=== PATIENT | female | born 1990 | race African-American/Black ===

== ENCOUNTER 2016-06-09 07:29 | Emergency (ER) | payer SELFPAY ==
[~2016-06-09] VITALS: Ht 160 cm; Wt 111.1 kg
[~2016-06-09 07:29] MED LIST: ALBUTEROL SULF8.5 GM INH; AMOXICILLIN500 MG ORAL; AZITHROMYCIN250 MG ORAL; AZITHROMYCIN250 MG PO; BACTRIM DS TAB1 EAC1 ORAL; BACTRIM-DS1 EA ORAL; CEPHALEXIN500 MG ORAL; COLACE100 MG ORAL; IBUPROFEN600 MG ORAL; IMITREX50 MG PO; MUCINEX600 MG PO; NKM; NORCO 5-325 TA1 EACH ORAL; PREDNISONE20 MG ORAL; VICODIN 5-5001 EACH ORAL; VICODIN 5-5001 EACH PO
[2016-06-09 07:41] VITALS: BP 141/82
[2016-06-09] MEDS ORDERED: ZOFRAN ODT4 MG ORAL (08:10)
--- NOTE | 2016-06-09 08:17 | Emergency Room Report ---
History of Present Illness General Chief Complaint: Nausea Source: Patient Present Illness HPI Patient present with complaints of upset epigastric discomfort nausea vomiting yesterday patient feels that after eating tacos on Monday she had the acute discomfort She felt better after the vomiting however had some continuing nausea Denies any chest pain or shortness of breath denies any flank pain denies any back pain Denies any fevers or chills Patient also reports a small discharge from the left axilla denies any trauma however reports that she has had previous multiple infections in that area Allergies: Coded Allergies: No Known Allergies (Unverified , 12/11/11) Patient History Past Medical History: see triage record Pertinent Family History: none Last Menstrual Period: 05/26/16 Now: No Reviewed Nursing Documentation: PMH: Agreed, PSxH: Agreed Nursing Documentation-PMH Hx Cardiac Problems: No Hx Hypertension: No Hx Pacemaker: No Hx Asthma: Yes Hx COPD: No Hx Diabetes: No Hx Cancer: No Hx Gastrointestinal Problems: No Hx Dialysis: No Hx Neurological Problems: No Hx Cerebrovascular Accident: No Hx Seizures: No Review of Systems All Other Systems: negative except mentioned in HPI Physical Exam Vital Signs Date Time Temp Pulse Resp B/P Pulse Ox O2 Delivery O2 Flow Rate FiO2 06/09/16 07:41 98.1 76 16 141/82 98 Room Air Sp02 EP Interpretation: reviewed, normal General Appearance: well appearing, no apparent distress Head: normocephalic, atraumatic Eyes: bilateral eye EOMI, bilateral eye PERRL ENT: hearing grossly normal, normal pharynx, TMs + canals normal, uvula midline Neck: full range of motion, supple, no meningismus, no bony tend Respiratory: lungs clear, normal breath sounds, no rhonchi, no respiratory distress, no retraction, no accessory muscle use Cardiovascular #1: normal peripheral pulses, regular rate, rhythm, no edema, no gallop, no JVD, no murmur Gastrointestinal: normal bowel sounds, non tender, soft, no mass, no organomegaly, non-distended, no guarding, no hernia, no pulsatile mass, no rebound Genitourinary: no CVA tenderness Musculoskeletal: normal inspection Neurologic: oriented x3, responsive, 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, motor strength/ tone normal, sensory intact Psychiatric: mood/affect normal Skin: palpation normal, other - Small folliculitis left axilla no surrounding cellulitis or erythema no fluctuance Lymphatic: normal inspection, no adenopathy Medical Decision Making Diagnostic Impression: Primary Impression: Nausea and vomiting in adult patient Additional Impression: folliculitis ER Course Patient is a fairly benign abdominal evaluation Also reports that she started to feel significantly better Patient reports that she missed work yesterday and is hoping to return tomorrow At this time I did not feel any further imaging or blood work was required given the benign evaluation and patient is stable for initial conservative outpatient trial Last Vital Signs Date Time Temp Pulse Resp B/P Pulse Ox O2 Delivery O2 Flow Rate FiO2 06/09/16 07:41 98.1 76 16 141/82 98 Room Air Status: unchanged Disposition: HOME, SELF-CARE Condition: Stable Scripts Ondansetron Odt* (ZOFRAN ODT*) 4 Mg Tab.rapdis 4 MG ORAL Q6H Y for Nausea & Vomiting, #12 TAB 0 Refills Prov: RIKI WARD D.O. 06/09/16 Departure Forms: Return to Work Return to Work in (Days): 1 Return to Work Date: Jun 10, 2016 Patient Instructions: Nausea and Vomiting, Adult, Folliculitis Additional Instructions: Patient is provided with the discharge instructions notified to follow up with primary doctor in the next 2-3 days otherwise return to the er with any worsening symptoms. Please note that this report is being documented using [employer] technology. This can lead to erroneous entry secondary to incorrect interpretation by the dictating instrument. RIKI WARD D.O. Jun 09, 2016 08:17
[2016-06-09 08:27] VITALS: BP 141/82
== END 2016-06-09 08:29 | disposition home or self-care (01) ==
LOC: EMR 08:01
DX: R10.13 Epigastric pain (principal); R11.2 Nausea with vomiting, unspecified; L73.9 Follicular disorder, unspecified; J45.909 Unspecified asthma, uncomplicated
CPT/HCPCS: 99283

== ENCOUNTER 2016-06-16 19:50 | Emergency (ER) | payer SELFPAY ==
[~2016-06-16] VITALS: Ht 160 cm; Wt 108.9 kg
[~2016-06-16 19:50] MED LIST changes: +ZOFRAN ODT4 MG ORAL
[2016-06-16 21:40] LABS: BASOPHILS % (AUTO) 0.6 % (0.0-2.0); EOSINOPHILS % (AUTO) 0.4 % (0.0-3.0); LYMPHOCYTES % (AUTO) 9.6 % (20.0-45.0); MEAN CORPUSCULAR HEMOGLOBIN 26.8 PG (27.0-31.0); MEAN CORPUSCULAR HGB CONC 32.4 G/DL (32.0-36.0); MEAN CORPUSCULAR VOLUME 83 FL (80-99); MEAN PLATELET VOLUME 9.2 FL (6.5-10.1); MONOCYTES % (AUTO) 4.7 % (1.0-10.0); NEUTROPHILS % (AUTO) 84.7 % (45.0-75.0); PLATELET COUNT 212 K/UL (150-450); RED BLOOD COUNT 4.19 M/UL (4.20-5.40); RED CELL DISTRIBUTION WIDTH 15.5 % (11.6-14.8); WHITE BLOOD COUNT 9.7 K/UL (4.8-10.8)
[2016-06-16 21:43] LABS: ALANINE AMINOTRANSFERASE 14 U/L (3-33); ALBUMIN/GLOBULIN RATIO 0.8 (1.0-2.7); ANION GAP 13 (5-15); ASPARTATE AMINO TRANSFERASE 17 U/L (5-40); CALCIUM 9.2 mg/dL (8.6-10.2); CARBON DIOXIDE 26 mEQ/L (20-30); CHLORIDE 99 mEQ/L (98-107); CREATININE 0.7 mg/dL (0.5-0.9); GLOMERULAR FILTRATION RATE > 60 mL/min (>60); HEMOLYSIS 0; LIPASE 25 U/L (< 60); SODIUM 138 mEQ/L (135-145); TOTAL PROTEIN 8.3 g/dL (6.6-8.7)
[2016-06-16 21:44] LABS: APPEARANCE,URINE CLEAR; KETONES,URINE 1+ (NEGATIVE); LEUKOCYTE ESTERASE ,URINE 1+ (NEGATIVE); NITRITE,URINE NEGATIVE (NEGATIVE); PH,URINE 7 (4.5-8.0); PROTEIN,URINE NEGATIVE (NEGATIVE); UROBILINOGEN,URINE NORMAL MG/DL (0.0-1.0)
[2016-06-16 21:57] LABS: RBC,URINE 0-2 /HPF (0 - 2); SQUAMOUS EPITHELIAL CELL,UR FEW /LPF (NONE/OCC)
[2016-06-16 21:58] LABS: BACTERIA,URINE FEW /HPF
[2016-06-16 22:25] VITALS: BP 123/71
[2016-06-16] MEDS ORDERED: Acetaminophen 500mg (ES) tab ORAL ONE (22:30)
[2016-06-16 23:36] VITALS: BP 129/81
--- NOTE | 2016-06-16 23:37 | Emergency Room Report ---
History of Present Illness General Chief Complaint: Abdominal Pain Source: Patient Present Illness HPI This patient presents with nausea, vomiting, diarrhea and crampy abdominal pain that started this morning around 10:30 AM. She does note that the symptoms started about 30 minutes after she ate at [employer]. He states that she has subjective fever and chills. She is diffuse bodyaches. She states it worsens the nausea and she is unable to tolerate anything orally. She is chest pain or shortness of breath. She denies dysuria or hematuria. She denies pelvic pain or abnormal vaginal discharge. She has no other complaints. Allergies: Coded Allergies: No Known Allergies (Unverified , 12/11/11) Patient History Past Medical History: see triage record, asthma Social History: Denies: alcohol use, drug use, smoking Last Menstrual Period: 06/10/16 Now: No Reviewed Nursing Documentation: PMH: Agreed, PSxH: Agreed Nursing Documentation-PMH Hx Cardiac Problems: No Hx Hypertension: No Hx Pacemaker: No Hx Asthma: Yes Hx COPD: No Hx Diabetes: No Hx Cancer: No Hx Gastrointestinal Problems: No Hx Dialysis: No Hx Neurological Problems: No Hx Cerebrovascular Accident: No Hx Seizures: No Review of Systems All Other Systems: negative except mentioned in HPI Physical Exam Vital Signs Date Time Temp Pulse Resp B/P Pulse Ox O2 Delivery O2 Flow Rate FiO2 06/16/16 20:02 99.0 96 17 120/71 99 Room Air Sp02 EP Interpretation: reviewed, normal General Appearance: no apparent distress, alert, GCS 15, non-toxic Head: normocephalic, atraumatic Eyes: bilateral eye PERRL, bilateral eye normal inspection ENT: hearing grossly normal, normal pharynx, no angioedema, normal voice Neck: full range of motion, supple/symm/no masses Respiratory: chest non-tender, lungs clear, normal breath sounds, speaking full sentences Cardiovascular #1: regular rate, rhythm, no edema Gastrointestinal: normal bowel sounds, soft, non-distended, no guarding, no rebound, tenderness - Diffusely ttp Rectal: deferred Genitourinary: no CVA tenderness Musculoskeletal: back normal, gait/station normal, normal range of motion, non- tender Neurologic: alert, oriented x3, responsive, motor strength/tone normal, sensory intact, speech normal Psychiatric: judgement/insight normal, memory normal, mood/affect normal, no suicidal/homicidal ideation Skin: normal color, no rash, warm/dry, well hydrated Medical Decision Making Diagnostic Impression: Primary Impression: Gastroenteritis ER Course This patient has a clinical presentation consistent with gastroenteritis. The patient's abdominal exam was benign. I do not suspect cholecystitis, pancreatitis, appendicitis or diverticulitis based on history and physical and laboratory workup. This is likely viral in etiology. The patient is nontoxic and nonsurgical at this time. The patient was given return precautions and followup instructions. Labs Test 06/16/16 21:04 White Blood Count 9.7 K/UL (4.8-10.8) Red Blood Count 4.19 M/UL (4.20-5.40) Hemoglobin 11.2 G/DL (12.0-16.0) Hematocrit 34.6 % (37.0-47.0) Mean Corpuscular Volume 83 FL (80-99) Mean Corpuscular Hemoglobin 26.8 PG (27.0-31.0) Mean Corpuscular Hemoglobin Concent 32.4 G/DL (32.0-36.0) Red Cell Distribution Width 15.5 % (11.6-14.8) Platelet Count 212 K/UL (150-450) Mean Platelet Volume 9.2 FL (6.5-10.1) Neutrophils (%) (Auto) 84.7 % (45.0-75.0) Lymphocytes (%) (Auto) 9.6 % (20.0-45.0) Monocytes (%) (Auto) 4.7 % (1.0-10.0) Eosinophils (%) (Auto) 0.4 % (0.0-3.0) Basophils (%) (Auto) 0.6 % (0.0-2.0) Urine Color Pale yellow Urine Appearance Clear Urine pH 7 (4.5-8.0) Urine Specific [place] 1.010 (1.005-1.035) Urine Protein Negative (NEGATIVE) Urine Glucose (UA) Negative (NEGATIVE) Urine Ketones 1+ (NEGATIVE) Urine Occult Blood Negative (NEGATIVE) Urine Nitrite Negative (NEGATIVE) Urine Bilirubin Negative (NEGATIVE) Urine Urobilinogen Normal MG/DL (0.0-1.0) Urine Leukocyte Esterase 1+ (NEGATIVE) Urine RBC 0-2 /HPF (0 - 2) Urine WBC 2-4 /HPF (0 - 2) Urine Squamous Epithelial Cells Few /LPF (NONE/OCC) Urine Bacteria Few /HPF (NONE) Urine HCG, Qualitative Negative Sodium Level 138 mEQ/L (135-145) Potassium Level 4.0 mEQ/L (3.4-4.9) Chloride Level 99 mEQ/L (98-107) Carbon Dioxide Level 26 mEQ/L (20-30) Anion Gap 13 (5-15) Blood Urea Nitrogen 9 mg/dL (7-23) Creatinine 0.7 mg/dL (0.5-0.9) Estimat Glomerular Filtration Rate > 60 mL/min (>60) Glucose Level 112 mg/dL (74-106) Calcium Level 9.2 mg/dL (8.6-10.2) Total Bilirubin 0.4 mg/dL (0.0-1.2) Aspartate Amino Transf (AST/SGOT) 17 U/L (5-40) Alanine Aminotransferase (ALT/SGPT) 14 U/L (3-33) Alkaline Phosphatase 84 U/L (35-104) Total Protein 8.3 g/dL (6.6-8.7) Albumin 3.8 g/dL (3.5-5.2) Globulin 4.5 g/dL Albumin/Globulin Ratio 0.8 (1.0-2.7) Lipase 25 U/L (< 60) Last Vital Signs Date Time Temp Pulse Resp B/P Pulse Ox O2 Delivery O2 Flow Rate FiO2 06/16/16 22:25 93 18 123/71 100 Room Air 06/16/16 20:02 99.0 Status: improved Disposition: HOME, SELF-CARE Condition: Improved DANDY OCHOA D.O. Jun 16, 2016 23:37
[2016-06-16] MEDS ORDERED: ZOFRAN ODT4 MG ORAL (23:39)
[2016-06-17] VITALS: BP 108/57
== END 2016-06-17 | disposition home or self-care (01) ==
LOC: EMR 20:37
DX: K52.9 Noninfective gastroenteritis and colitis, unspecified (principal); J45.909 Unspecified asthma, uncomplicated
CPT/HCPCS: 36415; 80053; 81003; 81025; 83690; 85025; 96360; 96361; 96374; 99284; J2405

== ENCOUNTER 2016-09-12 21:51 | Emergency (ER) | payer SELFPAY ==
[~2016-09-12] VITALS: Ht 160 cm; Wt 112.0 kg
[2016-09-12] MEDS ORDERED: PSEUDOEPHEDRINE30 MG PO (22:46)
[2016-09-12] MEDS ORDERED: AUGMENTIN 875-1 EAC1 ORAL (22:46)
[2016-09-12 23:33] VITALS: BP_SYST 1; BP_SYST 104; BP_DIAS 1; BP_DIAS 66
--- NOTE | 2016-09-13 01:04 | Emergency Room Report ---
History of Present Illness General Chief Complaint: Headache Source: Patient Present Illness HPI 25YOF [employer] with 1 week sinus pressure/headache, nasal discharge, eyes "running." Feels like usual sinus infection. Has resolved with Abx previously. Denies fever/chills, posterior headache, neck pain/stiffness Allergies: Coded Allergies: Cat Dander (Verified Allergy, Unknown, 09/12/16) Patient History Past Medical History: none Past Surgical History: none Pertinent Family History: none Social History: Denies: alcohol use, drug use, smoking Last Menstrual Period: today September 12, 2016 Now: No : 2 Para: 1 Immunizations: UTD Reviewed Nursing Documentation: PMH: Agreed, PSxH: Agreed Nursing Documentation-PMH Past Medical History: No History, Except For Hx Cardiac Problems: No Hx Hypertension: No Hx Pacemaker: No Hx Asthma: Yes Hx COPD: No Hx Diabetes: No Hx Cancer: No Hx Gastrointestinal Problems: No Hx Dialysis: No Hx Neurological Problems: No Hx Cerebrovascular Accident: No Hx Seizures: No Review of Systems All Other Systems: negative except mentioned in HPI Physical Exam Vital Signs Date Time Temp Pulse Resp B/P Pulse Ox O2 Delivery O2 Flow Rate FiO2 09/12/16 22:06 97.9 90 18 104/66 98 Room Air Sp02 EP Interpretation: reviewed, normal General Appearance: normal inspection, well appearing, no apparent distress, alert Head: atraumatic Eyes: bilateral eye EOMI, bilateral eye PERRL ENT: normal ENT inspection, hearing grossly normal, normal pharynx, no angioedema, normal voice, nasal congestion, other - TTP to frontal and maxillary sinuses Neck: normal inspection, full range of motion, supple, no bony tend Respiratory: normal inspection, lungs clear, normal breath sounds, no respiratory distress, no retraction, no wheezing Cardiovascular #1: regular rate, rhythm, no edema Gastrointestinal: normal inspection, normal bowel sounds, non tender, soft, no guarding, no hernia Genitourinary: no CVA tenderness Musculoskeletal: normal inspection, back normal, normal range of motion, Peggy' s Sign negative Neurologic: normal inspection, alert, oriented x3, responsive, pediatric np III-XII nml as tested, motor strength/tone normal, speech normal Psychiatric: normal inspection, judgement/insight normal, mood/affect normal Skin: normal inspection, normal color, no rash Medical Decision Making Diagnostic Impression: Primary Impression: Sinusitis, acute Qualified Codes: J01.11 - Acute recurrent frontal sinusitis ER Course Rx Augmentin, Sudafed for recurrent sinusitis Advised PMD followup Last Vital Signs Date Time Temp Pulse Resp B/P Pulse Ox O2 Delivery O2 Flow Rate FiO2 09/12/16 23:33 1/09/12/16 23:33 97.9 18 98 Room Air 09/12/16 22:06 90 Status: improved Disposition: HOME, SELF-CARE Condition: Improved Scripts Pseudoephedrine Hcl* (SUDAFED*) 30 Mg Tablet 30 MG PO Q6H for sinus congstion for 3 Days, #15 TAB Prov: YAHIR BLANCO M.D. 09/12/16 Amoxicillin/Potassium Clav 875-125* (AUGMENTIN 875-125 TABLET*) 1 Each Tablet 1 TAB ORAL TWICE A DAY for 7 Days, #14 TAB Prov: YAHIR BLANCO M.D. 09/12/16 Referrals: NOT CHOSEN HERNAN/,REFERRING (PCP) Patient Instructions: Sinus Headache YAHIR BLANCO M.D. Sep 13, 2016 01:04
== END 2016-09-12 22:55 | disposition home or self-care (01) ==
LOC: EMR 22:35
DX: J01.90 Acute sinusitis, unspecified (principal); J45.909 Unspecified asthma, uncomplicated
CPT/HCPCS: 99284

== ENCOUNTER 2017-05-05 01:47 | Emergency (ER) | payer OTHER ==
[~2017-05-05] VITALS: Ht 160 cm; Wt 114.3 kg
[~2017-05-05 01:47] MED LIST changes: +AUGMENTIN 875-1 EAC1 ORAL; +PSEUDOEPHEDRINE30 MG PO
[2017-05-05] MEDS ORDERED: KETOROLAC TROME10 MG PO (02:37)
[2017-05-05] MEDS ORDERED: Ketorolac 30mg Inj IM ONE (02:45)
[2017-05-05 02:48] VITALS: BP 110/70
--- NOTE | 2017-05-05 03:25 | Emergency Room Report ---
History of Present Illness General Chief Complaint: Toothache Source: Patient Present Illness HPI 26-year-old female presenting with right-sided tooth pain since Monday, states that [facility] gave her amoxicillin. States that the [place] is just making her nauseous and not helping with the pain. Has not been able to see her dentist Allergies: Coded Allergies: Cat Dander (Verified Allergy, Unknown, 09/12/16) Patient History Past Medical History: see triage record Past Surgical History: none Pertinent Family History: none Last Menstrual Period: Apr Reviewed Nursing Documentation: PMH: Agreed, PSxH: Agreed Nursing Documentation-PMH Hx Cardiac Problems: No Hx Hypertension: No Hx Pacemaker: No Hx Asthma: Yes Hx COPD: No Hx Diabetes: No Hx Cancer: No Hx Gastrointestinal Problems: No Hx Dialysis: No Hx Neurological Problems: No Hx Cerebrovascular Accident: No Hx Seizures: No Review of Systems All Other Systems: negative except mentioned in HPI Physical Exam Vital Signs Date Time Temp Pulse Resp B/P (MAP) Pulse Ox O2 Delivery O2 Flow Rate FiO2 05/05/17 02:17 97.7 16 108/67 97 Room Air 97.7 05/05/17 02:48 18 Sp02 EP Interpretation: reviewed, normal General Appearance: normal inspection, well appearing, no apparent distress, alert, GCS 15, non-toxic Head: normocephalic, atraumatic Eyes: bilateral eye normal inspection, bilateral eye PERRL, bilateral eye EOMI ENT: other - Dental caries noted in the right lower mouth, tender to palpation , also tender to palpation along the mandibular area from the outside. Full range of motion of the entire neck Neck: normal inspection, full range of motion, supple Respiratory: normal inspection, lungs clear, normal breath sounds, no respiratory distress, no retraction, no wheezing, speaking full sentences, chest symmetrical Cardiovascular #1: normal inspection, regular rate, rhythm, no edema, normal capillary refill Cardiovascular #2: 2+ radial (R), 2+ radial (L) Gastrointestinal: normal inspection, non tender, soft, non-distended, no guarding Musculoskeletal: normal inspection, back normal, normal range of motion, non- tender Neurologic: normal inspection, alert, oriented x3, responsive, motor strength/ tone normal, sensory intact, normal gait, speech normal Psychiatric: normal inspection, judgement/insight normal, memory normal Skin: normal inspection, normal color, no rash, warm/dry, well hydrated, normal turgor Medical Decision Making Diagnostic Impression: Primary Impression: Toothache ER Course 26-year-old female with dental pain DDX: Dental pain secondary to dental caries. Does not appear to be infected at this time however patient is already taking amoxicillin Plan: Pain control ER course: Patient has remained stable during ED stay. Feels better with pain medication Disposition: Patient is to be discharged to home. Prescriptions given are Toradol Patient is instructed to follow up with their dentist in 2 days Please note that this Emergency Department Report was dictated using [employer] construction [employer] technology software, occasionally this can lead to erroneous entry secondary to interpretation by the dictation equipment Last Vital Signs Date Time Temp Pulse Resp B/P (MAP) Pulse Ox O2 Delivery O2 Flow Rate FiO2 05/05/17 02:50 97.7 70 18 110/70 97 Room Air 207.9 Disposition: HOME, SELF-CARE Condition: Improved Scripts Ketorolac Tromethamine (KETOROLAC TROMETHAMINE) 10 Mg Tablet 10 MG PO Q8HR, #15 TAB Prov: Charla Tinoco M.D. 05/05/17 Referrals: [facility] (PCP) Patient Instructions: Dental Pain Additional Instructions: PLEASE SEE YOUR DENTIST IN 3 DAYS Charla Tinoco M.D. May 05, 2017 03:25
== END 2017-05-05 02:50 | disposition home or self-care (01) ==
LOC: EMR 02:30
DX: K08.89 Other specified disorders of teeth and supporting structures (principal); J45.909 Unspecified asthma, uncomplicated
CPT/HCPCS: 96372; 99283; J1885